=== PATIENT | female | born 1995 | race Caucasian/White ===

== ENCOUNTER 2018-06-15 17:35 | Emergency (ER) | payer MEDICAID, SELFPAY ==
[2018-06-15 17:37] VITALS: BP 142/72; PULSE 93; RESP 17; TEMP 37.2; O2SAT 98; BMI 32.8
--- NOTE | 2018-06-15 18:42 | ED.VISSUMM ---
- ER Visit Summary Date of Service: 06/15/18 Chief Complaint: Bartholin's abscess History of Present Illness: The patient is a 23 F who has a Bartholin's cyst. She was seen at [place] emergency department 2 days ago. She had an incision and drainage. She was placed on clindamycin. She states that her pain is increased. She states that it is getting bigger. She denies any fevers. Her RESPIRATORY THERAPIST is up at [facility]. Physical Examination: Vital signs are reviewed. Genitourinary exam reveals a small left lower inflamed Bartholin cyst. There is no fluctuance. No erythema. No abscesses felt. Test Results: None performed Emergency Department Course and Treatment: She is antibiotics will be switched from clindamycin to doxycycline. At this point I do not feel incision and drainage is warranted as there is no fluctuance. She will need to follow-up with her RESPIRATORY THERAPIST if her symptoms persist. Treatment Plan: [] Disposition: Discharge Impression: Inflamed Bartholin's gland This note was generated with [employer] dictation software. It may contain incorrect words, spelling, and punctuation that were not noted in review of the chart prior to signing ED Disposition - Plan for ED Patient: Disposition: Home or Assisted Living Chief Complaint: Abscess Instructions: ED Bartholins Cyst No Infec Prescriptions: Naproxen [Naprosyn] 500 mg PO BID PRN #20 tab Doxycycline Monohydrate 100 mg PO BID #14 cap Referrals: Care Physician,No Primary [Primary Care Provider] -
[2018-06-15 19:02] VITALS: RESP 18
[2018-06-15] MEDS: Doxycycline 100 MG CAPSULE PO (19:02)
== END 2018-06-15 19:04 | disposition home or self-care (01) ==
PROVIDERS: Emergency Provider Emergency Medicine
DX: N75.1 Abscess of Bartholin's gland (principal); Z72.0 Tobacco use
CPT/HCPCS: 99283